=== PATIENT | male | born 2000 | race Hispanic/Latino ===

== ENCOUNTER 2024-11-06 10:23 | Emergency (ER) | payer SELFPAY ==
[2024-11-06 11:00] LABS: Bacteria/HPF None Seen HPF (None Seen); CAUTI Indications for Culture Dysuria,urgency,freq; Glucose, Urine (Dipstick) Normal (Negative); Leukocyte Negative Leu/uL (Negative); Protein, Urine (Dipstick) Negative (Neg-Trace); RBC/HPF None Seen HPF (0-3); Specific Gravity, Urine 1.005 (1.002-1.036); WBC/HPF 0-3 HPF (0-3)
[2024-11-06 11:03] LABS: Urine Culture Reflex No No
== END 2024-11-06 11:44 | disposition home or self-care (01) ==
LOC: ERS 10:23
DX: R35.0 Frequency of micturition (principal)
CPT/HCPCS: 51798; 81001; 99283